=== PATIENT | female | born 1960 | race Caucasian/White ===

== ENCOUNTER 2020-07-22 22:32 | Emergency (ER) | payer MEDICAID ==
[~2020-07-22] VITALS: Ht 167.6 cm; Wt 95.3 kg
--- NOTE | 2020-07-22 22:34 | NUR ---
PT [facility]UDHAK[facility] BLS. TAKEN TO BED 3
[2020-07-22 22:40] VITALS: BP 160/90
--- NOTE | 2020-07-22 22:52 | NUR ---
PT C/O FACIAL PAIN STARTING FROM LEFT CHIN AREA RADIAITING ALONG LEFT SIDE OF FACE TO TOP OF HEAD. PAIN IS 9/10 ACHING/THROBBING TYPE PAIN. DENIES ANY VISION PROBLEMS, DENIES EAR ACHE OR FEELING OF PLUGGED EAR. AFEBRILE, NO N/V/D, DENIES SOB. FACIAL SYMMETRY, NO WEAKNESS TO ANY EXTREMITIES. AMBULATES WITH STEADY GAIT. BED IN LOWEST POSITION AND SIDERAIL UP X 1. ALLERGY - SULFA NO HX
--- NOTE | 2020-07-22 22:53 | NUR ---
Dr. Otero examining patient.
[2020-07-22] MEDS ORDERED: KETOROLAC 60 MG/2 ML VIAL IM ONE (23:00)
[2020-07-22 23:24] VITALS: BP 160/90
== END 2020-07-22 23:25 | disposition home or self-care (01) ==
LOC: MED 22:32
DX: R68.84 Jaw pain (principal); Z98.890 Other specified postprocedural states; Z88.2 Allergy status to sulfonamides
CPT/HCPCS: 96372; 99283; J1885

== ENCOUNTER 2022-07-12 12:37 | Emergency (ER) | payer MEDICAID, OTHER ==
[~2022-07-12] VITALS: Ht 167.6 cm; Wt 113.9 kg
[2022-07-12 12:41] VITALS: BP 179/95
--- NOTE | 2022-07-12 12:49 | NUR ---
PT AMB TO BED 1.
[2022-07-12] MEDS ORDERED: PROM118S5 PO (13:32)
[2022-07-12] MEDS ORDERED: BENZ-300 PO (13:32)
[2022-07-12] MEDS ORDERED: FLONAS NS (13:32)
--- NOTE | 2022-07-12 13:35 | NUR ---
PT SWABBED AND WALKED TO LAB
--- NOTE | 2022-07-12 13:41 | NUR ---
Patient discharged with v/s stable. Written and verbal after care instructions given and explained. Patient alert, oriented and verbalized understanding of instructions. Ambulatory with steady gait. All questions addressed prior to discharge. ID band removed. Patient advised to follow up with PMD. Rx of CEPACHOL, PROMETHAZINE given. Patient educated on indication of medication including possible reaction and side effects. Opportunity to ask questions provided and answered.
== END 2022-07-12 13:41 | disposition home or self-care (01) ==
LOC: MED 12:37
DX: J02.9 Acute pharyngitis, unspecified (principal); Z20.822 Contact with and (suspected) exposure to COVID-19; Z88.1 Allergy status to other antibiotic agents; Z79.899 Other long term (current) drug therapy
CPT/HCPCS: 87081; 99283

== ENCOUNTER 2022-07-18 06:05 | Emergency (ER) | payer OTHER ==
[~2022-07-18] VITALS: Ht 167.6 cm; Wt 113.4 kg
[~2022-07-18 06:05] MED LIST: BENZ-300 PO; FLONAS NS; PROM118S5 PO
[2022-07-18 06:21] VITALS: BP 167/85
--- NOTE | 2022-07-18 06:27 | NUR ---
PT TO ED 2, REPORT GIVEN TO JACKY LARSON
--- NOTE | 2022-07-18 06:35 | NUR ---
EMT AT BEDSIDE TO PERFORM EKG
--- NOTE | 2022-07-18 06:45 | NUR ---
SPOKE WITH PATIENT AT BEDSIDE; PATIENT REPORTS CONGESTION, COUGH, BODY FATIGUE, AND LETHARGY. PATIENT DENIES FEVER. PATIENT ALSO REPORTS BEING SEEN AT HOSPITAL ON Thursday07/12/2022. PATIENT STATES THAT KNEES HAVE MILD SWELLING. PATIENT DENIES ANY PAST MEDICAL HISTORY
[2022-07-18 07:11] LABS: BASOPHILS # (AUTO) 0.1 K/uL (0.00-0.22); EOSINOPHILS # (AUTO) 0.4 K/uL (0-0.4); EOSINOPHILS % (AUTO) 7.8 % (0.0-4.0); HEMATOCRIT 37.9 % (36-48); HEMOGLOBIN 12.9 g/dL (12.0-16.0); LYMPHOCYTES # (AUTO) 1.8 K/uL (2.5-16.5); MEAN CORPUSCULAR HEMOGLOBIN 29 pg (27-31); MEAN CORPUSCULAR HGB CONC 34 g/dL (33-37); MEAN CORPUSCULAR VOLUME 85.3 fL (80-94); MONOCYTES # (AUTO) 0.4 K/uL (0.8-1.0); MONOCYTES % (AUTO) 6.7 % (1.7-9.3); NEUTROPHILS # (AUTO) 2.8 K/uL (1.8-7.7); NEUTROPHILS % (AUTO) 51.5 % (42.2-75.2); PLATELET COUNT (AUTO) 195 K/uL (140-450); RED BLOOD CELL COUNT(AUTO) 4.45 MIL/uL (4.20-5.40); RED CELL DISTRIBUTION WIDTH 13.8 % (11.6-13.7); WHITE BLOOD COUNT (AUTO) 5.4 K/uL (4.8-10.8)
--- NOTE | 2022-07-18 07:25 | NUR ---
[place]. DENIES PAIN OR DISCOMFORT. PENDING FURTHER DISPO. NAD. SAFETY MAINTAINED.
[2022-07-18 07:53] LABS: ALBUMIN 3.3 g/dL (3.4-5.0); CARBON DIOXIDE 25.9 mmol/L (21-32); CREATININE 0.8 mg/dL (0.6-1.3); POTASSIUM 3.9 mmol/L (3.5-5.1); TOTAL BILIRUBIN 0.6 mg/dL (0.0-1.0)
[2022-07-18 09:22] VITALS: BP 123/68
--- NOTE | 2022-07-18 09:22 | NUR ---
Patient discharged with v/s stable. Written and verbal after care instructions given and explained. Patient verbalized understanding. Ambulatory with steady gait. All questions addressed prior to discharge. Advised to follow up with PMD.
== END 2022-07-18 09:22 | disposition home or self-care (01) ==
LOC: MED 06:05
DX: J06.9 Acute upper respiratory infection, unspecified (principal); R53.1 Weakness; R05.9 Cough, unspecified; M79.10 Myalgia, unspecified site; Z88.1 Allergy status to other antibiotic agents; Z79.899 Other long term (current) drug therapy
CPT/HCPCS: 36415; 71045; 80053; 84484; 85025; 93005; 99285; Q0092

== ENCOUNTER 2022-08-09 02:59 | Emergency (ER) | payer OTHER ==
[~2022-08-09] VITALS: Ht 167.6 cm; Wt 116.3 kg
[2022-08-09 03:13] VITALS: BP 170/80
--- NOTE | 2022-08-09 03:13 | NUR ---
TO BED AMBULATORY
[2022-08-09] MEDS ORDERED: PROCHLORPERAZINE 10 MG/2 ML VIAL IVP ONE (03:25)
--- NOTE | 2022-08-09 03:33 | NUR ---
PT TAKEN TO CT VIA WHEELCHAIR.
--- NOTE | 2022-08-09 03:43 | NUR ---
PT RETURNED FROM CT.
--- NOTE | 2022-08-09 03:50 | NUR ---
IV ESTABLISHED, MEDICATION GIVEN. PT PROVIDED WARM BLANKETS. PT IN POSITION OF COMFORT. WILL CONTINUE TO MONITOR.
[2022-08-09 04:07] LABS: BASOPHILS # (AUTO) 0.1 K/uL (0.00-0.22); BASOPHILS % (AUTO) 1.2 % (0.0-2.0); EOSINOPHILS # (AUTO) 0.5 K/uL (0-0.4); EOSINOPHILS % (AUTO) 8.3 % (0.0-4.0); HEMATOCRIT 38.1 % (36-48); HEMOGLOBIN 12.9 g/dL (12.0-16.0); LYMPHOCYTES # (AUTO) 1.8 K/uL (2.5-16.5); LYMPHOCYTES % (AUTO) 31.5 % (20.5-51.1); MEAN CORPUSCULAR HEMOGLOBIN 29 pg (27-31); MEAN CORPUSCULAR HGB CONC 34 g/dL (33-37); MEAN CORPUSCULAR VOLUME 85.8 fL (80-94); MONOCYTES # (AUTO) 0.4 K/uL (0.8-1.0); MONOCYTES % (AUTO) 6.4 % (1.7-9.3); NEUTROPHILS # (AUTO) 3.1 K/uL (1.8-7.7); NEUTROPHILS % (AUTO) 52.6 % (42.2-75.2); PLATELET COUNT (AUTO) 194 K/uL (140-450); RED BLOOD CELL COUNT(AUTO) 4.44 MIL/uL (4.20-5.40); RED CELL DISTRIBUTION WIDTH 14.3 % (11.6-13.7); WHITE BLOOD COUNT (AUTO) 5.8 K/uL (4.8-10.8)
[2022-08-09 04:28] LABS: ALBUMIN 3.2 g/dL (3.4-5.0); CARBON DIOXIDE 24.6 mmol/L (21-32); CREATININE 0.7 mg/dL (0.6-1.3); TOTAL BILIRUBIN 0.4 mg/dL (0.0-1.0)
[2022-08-09 05:32] VITALS: BP 152/72
[2022-08-09 06:15] LABS: POTASSIUM 4.2 mmol/L (3.5-5.1)
[2022-08-09 06:16] LABS: ANION GAP 13.6 (8-16)
== END 2022-08-09 05:32 | disposition home or self-care (01) ==
LOC: MED 02:59
DX: I10 Essential (primary) hypertension (principal)
CPT/HCPCS: 36415; 70450; 80053; 83690; 85025; 96374; 99284; J0780

== ENCOUNTER 2023-06-11 06:05 | Emergency (ER) | payer OTHER ==
[~2023-06-11] VITALS: Ht 167.6 cm; Wt 96.2 kg
[2023-06-11 06:16] VITALS: BP 178/72; PULSE 63; RESP 20; TEMP 97.3; O2SAT 98
[2023-06-11 06:51] VITALS: BP 172/78; PULSE 65; RESP 14; O2SAT 98
[2023-06-11 07:13] LABS: ALBUMIN 3.3 g/dL (3.4-5.0); ANION GAP 10.5 (8-16); CALCIUM 8.1 mg/dL (8.5-10.1); CARBON DIOXIDE 26.3 mmol/L (21-32); CREATININE 0.8 mg/dL (0.6-1.3); POTASSIUM 3.8 mmol/L (3.5-5.1); TOTAL BILIRUBIN 0.5 mg/dL (0.0-1.0); TOTAL PROTEIN, SERUM 6.4 g/dL (6.4-8.2)
[2023-06-11 07:59] LABS: FLU A ANTIGEN negative (NEGATIVE); FLU B ANTIGEN NEGATIVE (NEGATIVE)
[2023-06-11 07:59] LABS: BASOPHILS # (AUTO) 0.1 K/uL (0.00-0.22); EOSINOPHILS # (AUTO) 0.6 K/uL (0-0.4); HEMATOCRIT 38.1 % (36-48); HEMOGLOBIN 12.9 g/dL (12.0-16.0); LYMPHOCYTES # (AUTO) 1.9 K/uL (2.5-16.5); LYMPHOCYTES % (AUTO) 35.2 % (20.5-51.1); MEAN CORPUSCULAR HEMOGLOBIN 29 pg (27-31); MEAN CORPUSCULAR HGB CONC 34 g/dL (33-37); MEAN CORPUSCULAR VOLUME 86.3 fL (80-94); MONOCYTES # (AUTO) 0.4 K/uL (0.8-1.0); MONOCYTES % (AUTO) 6.8 % (1.7-9.3); NEUTROPHILS # (AUTO) 2.4 K/uL (1.8-7.7); PLATELET COUNT (AUTO) 183 K/uL (140-450); RED BLOOD CELL COUNT(AUTO) 4.41 MIL/uL (4.20-5.40); RED CELL DISTRIBUTION WIDTH 13.9 % (11.6-13.7); WHITE BLOOD COUNT (AUTO) 5.4 K/uL (4.8-10.8)
[2023-06-11] MEDS ORDERED: ACET-10509 PO (08:25)
[2023-06-11] MEDS ORDERED: DEXT118S25 PO (08:25)
== END 2023-06-11 08:38 | disposition home or self-care (01) ==
LOC: MED 06:05
DX: J06.9 Acute upper respiratory infection, unspecified (principal); R05.9 Cough, unspecified; R06.02 Shortness of breath; I10 Essential (primary) hypertension; Z88.1 Allergy status to other antibiotic agents; Z79.899 Other long term (current) drug therapy; Z20.822 Contact with and (suspected) exposure to COVID-19
CPT/HCPCS: 36415; 71045; 80053; 83880; 84484; 85025; 87426; 87804; 93005; 99285; Q0092

== ENCOUNTER 2023-06-14 06:33 | Emergency (ER) | payer OTHER ==
[~2023-06-14] VITALS: Ht 165.1 cm; Wt 83.9 kg
[~2023-06-14 06:33] MED LIST changes: +ACET-10509 PO; +DEXT118S25 PO
[2023-06-14 06:40] VITALS: BP 187/92; PULSE 77; RESP 18; TEMP 97.4; O2SAT 98
[2023-06-14 07:20] VITALS: O2SAT 95
[2023-06-14 07:22] VITALS: O2SAT 96
[2023-06-14 07:22] LABS: BASOPHILS % (AUTO) 0.7 % (0.0-2.0); EOSINOPHILS # (AUTO) 0.6 K/uL (0-0.4); EOSINOPHILS % (AUTO) 9.5 % (0.0-4.0); HEMATOCRIT 36.4 % (36-48); HEMOGLOBIN 12.6 g/dL (12.0-16.0); LYMPHOCYTES # (AUTO) 1.8 K/uL (2.5-16.5); LYMPHOCYTES % (AUTO) 30.9 % (20.5-51.1); MEAN CORPUSCULAR HEMOGLOBIN 29 pg (27-31); MEAN CORPUSCULAR HGB CONC 34 g/dL (33-37); MEAN CORPUSCULAR VOLUME 85.3 fL (80-94); MONOCYTES # (AUTO) 0.3 K/uL (0.8-1.0); MONOCYTES % (AUTO) 5.8 % (1.7-9.3); NEUTROPHILS # (AUTO) 3.1 K/uL (1.8-7.7); NEUTROPHILS % (AUTO) 53.1 % (42.2-75.2); PLATELET COUNT (AUTO) 187 K/uL (140-450); RED BLOOD CELL COUNT(AUTO) 4.27 MIL/uL (4.20-5.40); WHITE BLOOD COUNT (AUTO) 5.8 K/uL (4.8-10.8)
[2023-06-14 07:43] LABS: ALBUMIN 3.5 g/dL (3.4-5.0); ANION GAP 13.3 (8-16); CALCIUM 8.2 mg/dL (8.5-10.1); CARBON DIOXIDE 25.3 mmol/L (21-32); CREATININE 0.8 mg/dL (0.6-1.3); POTASSIUM 3.6 mmol/L (3.5-5.1); TOTAL BILIRUBIN 0.5 mg/dL (0.0-1.0); TOTAL PROTEIN, SERUM 6.6 g/dL (6.4-8.2)
[2023-06-14] MEDS ORDERED: PRED20TA5 PO (08:52)
[2023-06-14] MEDS ORDERED: IBUP-2213 PO (08:52)
[2023-06-14 09:00] VITALS: BP 153/77; PULSE 79; RESP 12; TEMP 97.4; O2SAT 98
== END 2023-06-14 09:14 | disposition home or self-care (01) ==
LOC: MED 06:33
DX: R06.02 Shortness of breath (principal); R05.9 Cough, unspecified; R10.9 Unspecified abdominal pain; I10 Essential (primary) hypertension; Z88.1 Allergy status to other antibiotic agents; Z79.899 Other long term (current) drug therapy
CPT/HCPCS: 36415; 71045; 80053; 83880; 84484; 85025; 93005; 99285; Q0092

== ENCOUNTER 2023-07-12 18:48 | Emergency (ER) | payer OTHER ==
[~2023-07-12] VITALS: Ht 167.6 cm; Wt 70.8 kg
[~2023-07-12 18:48] MED LIST changes: +IBUP-2213 PO; +PRED20TA5 PO
[2023-07-12 19:29] VITALS: BP 190/87; PULSE 78; RESP 20; TEMP 98.1; O2SAT 97
[2023-07-12] MEDS ORDERED: ACETAMINOPHEN EXTRA STRENGTH 500 MG TAB PO ONE (20:20)
[2023-07-12] MEDS ORDERED: PSEUDOEPHEDRINE 30 MG TAB PO ONE (20:20)
[2023-07-12] MEDS ORDERED: KETOROLAC 30 MG/ML VIAL IM ONE (20:20)
[2023-07-12 20:36] LABS: FLU A ANTIGEN negative (NEGATIVE); FLU B ANTIGEN negative (NEGATIVE)
[2023-07-12] MEDS ORDERED: SUD30 PO (20:56)
[2023-07-12 21:31] VITALS: BP 190/87; PULSE 78; RESP 20; TEMP 98.1; O2SAT 97
== END 2023-07-12 21:31 | disposition home or self-care (01) ==
LOC: MED 18:48
DX: J06.9 Acute upper respiratory infection, unspecified (principal); Z20.822 Contact with and (suspected) exposure to COVID-19; I10 Essential (primary) hypertension; Z79.899 Other long term (current) drug therapy; Z79.1 Long term (current) use of non-steroidal anti-inflammatories (NSAID); Z88.0 Allergy status to penicillin
CPT/HCPCS: 87426; 87804; 96372; 99283; J1885

== ENCOUNTER 2023-08-22 06:29 | Emergency (ER) | payer OTHER ==
[~2023-08-22] VITALS: Ht 167.6 cm; Wt 99.8 kg
[~2023-08-22 06:29] MED LIST changes: +SUD30 PO
[2023-08-22 06:30] VITALS: BP 157/98; PULSE 72; RESP 18; TEMP 97.9; O2SAT 97
[2023-08-22] MEDS ORDERED: FLONAS NS (09:15)
== END 2023-08-22 10:33 | disposition home or self-care (01) ==
LOC: MED 06:29
DX: R06.02 Shortness of breath (principal); R05.9 Cough, unspecified; M25.511 Pain in right shoulder; I10 Essential (primary) hypertension; Z79.899 Other long term (current) drug therapy
CPT/HCPCS: 71045; 93005; 99283

== ENCOUNTER 2023-09-19 10:50 | Emergency (ER) | payer OTHER ==
[~2023-09-19] VITALS: Ht 166.9 cm; Wt 74.4 kg
[2023-09-19 11:10] VITALS: BP 146/82; PULSE 72; RESP 18; TEMP 98.5; O2SAT 98
== END 2023-09-19 13:26 | disposition left against medical advice (07) ==
LOC: MED 10:50
DX: M54.50 Low back pain, unspecified (principal); R51.9 Headache, unspecified; Z53.21 Procedure and treatment not carried out due to patient leaving prior to being seen by health care provider
CPT/HCPCS: 99281

== ENCOUNTER 2023-11-19 06:35 | Emergency (ER) | payer OTHER ==
[~2023-11-19] VITALS: Ht 167.6 cm; Wt 108.9 kg
[2023-11-19 06:44] VITALS: BP 133/67; PULSE 78; RESP 16; TEMP 97.8; O2SAT 100
[2023-11-19] MEDS: KETOROLAC 30 MG/ML VIAL IM ONE (07:22)
[2023-11-19] MEDS: PROCHLORPERAZINE 10 MG/2 ML VIAL IM ONE (07:22)
[2023-11-19 07:38] VITALS: RESP 13
[2023-11-19] MEDS ORDERED: CLON0.5T PO (08:20)
[2023-11-19] MEDS ORDERED: NAPR-1704 PO (08:20)
[2023-11-19 08:41] VITALS: BP 132/70; PULSE 78; O2SAT 97
== END 2023-11-19 08:41 | disposition home or self-care (01) ==
LOC: MED 06:35
DX: M26.623 Arthralgia of bilateral temporomandibular joint (principal); I10 Essential (primary) hypertension; Z79.899 Other long term (current) drug therapy
CPT/HCPCS: 70100; 96372; 99284; J0780; J1885

== ENCOUNTER 2023-11-19 17:21 | Emergency (ER) | payer OTHER ==
[~2023-11-19] VITALS: Ht 167.6 cm; Wt 107.7 kg
[~2023-11-19 17:21] MED LIST changes: +CLON0.5T PO; +NAPR-1704 PO
[2023-11-19 17:24] VITALS: BP 146/71; PULSE 91; RESP 16; TEMP 98.4; O2SAT 98
[2023-11-19] MEDS: IBUPROFEN 800 MG TAB PO ONE (19:22)
== END 2023-11-19 19:22 | disposition home or self-care (01) ==
LOC: MED 17:21
DX: M26.621 Arthralgia of right temporomandibular joint (principal); I10 Essential (primary) hypertension; Z79.899 Other long term (current) drug therapy
CPT/HCPCS: 99283

== ENCOUNTER 2024-01-04 18:26 | Emergency (ER) | payer OTHER ==
[~2024-01-04] VITALS: Ht 167.6 cm; Wt 106.6 kg
[2024-01-04 18:52] VITALS: BP 130/71; PULSE 86; RESP 18; TEMP 98.1; O2SAT 97
[2024-01-05] MEDS ORDERED: LORA1T1237 PO (07:20)
== END 2024-01-04 22:06 | disposition left against medical advice (07) ==
LOC: MED 18:26
DX: R09.81 Nasal congestion (principal); R09.82 Postnasal drip; Z53.21 Procedure and treatment not carried out due to patient leaving prior to being seen by health care provider
CPT/HCPCS: 99281

== ENCOUNTER 2024-01-05 06:52 | Emergency (ER) | payer OTHER ==
[~2024-01-05] VITALS: Ht 167.6 cm; Wt 106.6 kg
[2024-01-05 06:57] VITALS: BP 147/92; PULSE 65; RESP 14; TEMP 98.2; O2SAT 98
[2024-01-05] MEDS ORDERED: LORA1T1237 PO (07:20)
[2024-01-05 07:33] VITALS: BP 147/79; PULSE 58; RESP 17; O2SAT 97
== END 2024-01-05 07:33 | disposition home or self-care (01) ==
LOC: MED 06:52
DX: J30.2 Other seasonal allergic rhinitis (principal); I10 Essential (primary) hypertension; R60.9 Edema, unspecified; Z79.1 Long term (current) use of non-steroidal anti-inflammatories (NSAID); Z79.899 Other long term (current) drug therapy; Z88.1 Allergy status to other antibiotic agents
CPT/HCPCS: 99282

== ENCOUNTER 2024-01-10 02:06 | Emergency (ER) | payer OTHER ==
[~2024-01-10] VITALS: Ht 167.6 cm; Wt 106.6 kg
[~2024-01-10 02:06] MED LIST changes: +LORA1T1237 PO
[2024-01-10 02:10] VITALS: BP 154/83; PULSE 79; RESP 20; TEMP 98; O2SAT 96
[2024-01-10] MEDS ORDERED: lisinopriL 20 MG TAB PO ONE (02:25)
== END 2024-01-10 02:30 | disposition left against medical advice (07) ==
LOC: MED 02:06
DX: R06.02 Shortness of breath (principal); I10 Essential (primary) hypertension; R06.00 Dyspnea, unspecified; F99 Mental disorder, not otherwise specified; F91.9 Conduct disorder, unspecified; Z79.899 Other long term (current) drug therapy; Z88.1 Allergy status to other antibiotic agents
CPT/HCPCS: 99281

== ENCOUNTER 2024-03-03 06:40 | Emergency (ER) | payer OTHER ==
[~2024-03-03] VITALS: Ht 162.6 cm; Wt 83.9 kg
[~2024-03-03 06:40] MED LIST changes: +CLON-1201 PO; -CLON0.5T PO
[2024-03-03 06:48] VITALS: BP 172/92; PULSE 88; RESP 18; TEMP 97.3; O2SAT 98
[2024-03-03 07:25] VITALS: TEMP 97.9
[2024-03-03 08:32] VITALS: BP 148/88; PULSE 72; RESP 19; O2SAT 95
== END 2024-03-03 08:00 | disposition home or self-care (01) ==
LOC: MED 06:40
DX: R06.02 Shortness of breath (principal); F41.9 Anxiety disorder, unspecified; I10 Essential (primary) hypertension; Z79.1 Long term (current) use of non-steroidal anti-inflammatories (NSAID); Z79.899 Other long term (current) drug therapy; Z88.1 Allergy status to other antibiotic agents
CPT/HCPCS: 93005; 99283